=== PATIENT | female | born 1975 | race Caucasian/White ===

== ENCOUNTER 2018-04-04 15:21 | Observation (INO) | payer MEDICAID ==
[2018-04-04 17:00] LABS: ADD MAN DIFF? NO
[2018-04-04 17:04] LABS: BASOPHIL # 0.1 10^3/ul (0.0-0.1); BASOPHILS % 0.5 % (0.0-2.0); EOSINOPHILS # 0.3 10^3/ul (0.0-0.5); EOSINOPHILS % 2.7 % (0.0-7.0); HEMATOCRIT 43.2 % (37.0-47.0); HEMOGLOBIN 13.2 g/dl (12.0-16.0); LYMPHOCYTES # 2.8 10^3/ul (0.8-2.9); MEAN CORPUSCULAR HEMOGLOBIN 23.1 pg (29.0-33.0); MEAN CORPUSCULAR HGB CONC 30.6 g/dl (32.0-37.0); MEAN CORPUSCULAR VOLUME 75.5 fl (82.0-101.0); MEAN PLATELET VOLUME 11.2 fl (7.4-10.4); NEUTROPHIL # 8.5 10^3/ul (1.6-7.5); NEUTROPHILS % 66.4 % (39.0-77.0); PLATELET COUNT 281 10^3/UL (140-415); RED BLOOD COUNT 5.72 10^6/ul (4.20-5.40); RED CELL DISTRIBUTION WIDTH 15.7 % (11.5-14.5)
[2018-04-04 17:04] LABS: WHITE BLOOD COUNT 12.7 10^3/ul (4.8-10.8)
[2018-04-04] MEDS: ASPIRIN 325 MG TAB PO (17:18)
[2018-04-04 17:24] LABS: ANION GAP 12 (8-16); BLOOD UREA NITROGEN 15 mg/dl (7-20); CALCIUM 9.2 mg/dl (8.4-10.2); CARBON DIOXIDE 32 mmol/L (21-31); CHLORIDE 103 mmol/L (97-110); CREATININE 0.74 mg/dl (0.44-1.00); GLUCOSE 140 mg/dl (70-220); POTASSIUM 3.8 mmol/L (3.5-5.1); SODIUM 143 mmol/L (135-144)
[2018-04-04 17:38] LABS: TROPONIN-I < 0.012 ng/ml (0.000-0.120)
[2018-04-04] MEDS ORDERED: ACETAMINOPHEN 325 MG TAB PO ×2 (18:30→19:30)
[2018-04-04] MEDS ORDERED: ONDANSETRON 4 MG INJ IV ×2 (18:30→19:30)
[2018-04-04] MEDS ORDERED: HYDROCODONE/APAP (5/325) TAB PO (19:30)
[2018-04-04] MEDS ORDERED: morphine 2 MG INJ IV (19:30)
[2018-04-04] MEDS ORDERED: NACL 0.9% 3 ML SYG IV (19:30)
[2018-04-04] MEDS ORDERED: DOCUSATE SODIUM 100 MG CAP PO (19:30)
[2018-04-04] MEDS ORDERED: ZOLPIDEM 5 MG TAB PO (19:30)
[2018-04-04 23:21] LABS: CREATINE KINASE 64 IU/L (23-200)
[2018-04-04 23:35] LABS: CK INDEX 0.8; CK-MB 0.54 ng/ml (0.0-2.4); TROPONIN-I < 0.012 ng/ml (0.000-0.120)
[2018-04-05 08:16] LABS: ADD MAN DIFF? NO
[2018-04-05 08:24] LABS: BASOPHILS % 0.4 % (0.0-2.0); EOSINOPHILS # 0.3 10^3/ul (0.0-0.5); EOSINOPHILS % 3.6 % (0.0-7.0); HEMATOCRIT 40.6 % (37.0-47.0); HEMOGLOBIN 12.4 g/dl (12.0-16.0); LYMPHOCYTES # 2.4 10^3/ul (0.8-2.9); LYMPHOCYTES % 25.1 % (15.0-51.0); MEAN CORPUSCULAR HEMOGLOBIN 22.9 pg (29.0-33.0); MEAN CORPUSCULAR HGB CONC 30.5 g/dl (32.0-37.0); MEAN PLATELET VOLUME 11.7 fl (7.4-10.4); MONOCYTE # 0.8 10^3/ul (0.3-0.9); MONOCYTES % 8.2 % (0.0-11.0); NEUTROPHIL # 5.8 10^3/ul (1.6-7.5); NEUTROPHILS % 62.3 % (39.0-77.0); PLATELET COUNT 240 10^3/UL (140-415); RED BLOOD COUNT 5.41 10^6/ul (4.20-5.40)
[2018-04-05 08:24] LABS: WHITE BLOOD COUNT 9.4 10^3/ul (4.8-10.8)
[2018-04-05 08:38] LABS: IRON 51 ug/dl (35-150)
[2018-04-05 08:46] LABS: ANION GAP 11 (8-16); BLOOD UREA NITROGEN 16 mg/dl (7-20); CALCIUM 8.5 mg/dl (8.4-10.2); CARBON DIOXIDE 30 mmol/L (21-31); CHLORIDE 106 mmol/L (97-110); CHOL/HDL RATIO 3.8 RATIO; CHOLESTEROL 134 mg/dl (100-200); CREATINE KINASE 49 IU/L (23-200); CREATININE 0.69 mg/dl (0.44-1.00); GLUCOSE 140 mg/dl (70-220); HDL CHOLESTEROL 35 mg/dl (34-88); LDL CHOLESTEROL,CALCULATED 44 mg/dl; MAGNESIUM 1.9 mg/dl (1.7-2.5); POTASSIUM 4.1 mmol/L (3.5-5.1); SODIUM 143 mmol/L (135-144); TRIGLYCERIDES 273 mg/dl (0-149)
[2018-04-05 08:48] LABS: % IRON SATURATION 16 % SAT (22-52); TOTAL IRON BINDING CAPACITY 322 ug/dl (241-421)
[2018-04-05 08:54] LABS: CK INDEX 0.6; CK-MB 0.29 ng/ml (0.0-2.4)
[2018-04-05 08:58] LABS: TROPONIN-I < 0.012 ng/ml (0.000-0.120)
[2018-04-05 09:04] LABS: PHOSPHORUS 2.8 mg/dl (2.5-4.9)
[2018-04-05 09:17] LABS: HEMOGLOBIN A1C 7.2 % (0-5.9)
[2018-04-05] MEDS: ENOXAPARIN 40 MG/0.4 ML SYG SC (09:58)
[2018-04-05] MEDS: ASPIRIN (EC) 81 MG TAB PO (09:58)
== END 2018-04-05 14:34 | disposition home or self-care (01) ==
LOC: MS4 19:28 → E/R 15:21 → MS4 19:34
DX: R07.89 Other chest pain (principal); D72.829 Elevated white blood cell count, unspecified; Z82.49 Family history of ischemic heart disease and other diseases of the circulatory system
CPT/HCPCS: 36415; 71045; 80048; 80061; 81025; 82550; 82553; 83036; 83540; 83735; 84100; 84484; 85025; 93005; 99217; 99285-25; G0378